=== PATIENT | female | born 1985 | race Caucasian/White ===

== ENCOUNTER 2022-09-19 11:55 | Emergency (ER) | payer SELFPAY ==
[2022-09-19 12:02] VITALS: BP 121/76; PULSE 66; RESP 18; TEMP 98.7; BMI 31.8
[2022-09-19] MEDS ORDERED: IBUPROFEN 600 MG TABLET (FP) PO ONE ×2 (12:56→13:00)
[2022-09-19 13:06] LABS: EPI CELLS >36 /uL (0-25.1); HCG,QUALITATIVE URINE Negative; HYALINE CASTS 2 /uL (0-3.1); URINE APPEARANCE CLOUDY; URINE BACTERIA 580 /uL (0-1359); URINE BILIRUBIN NEGATIVE (NEGATIVE); URINE COLOR ORANGE; URINE GLUCOSE (UA) NEGATIVE (NEGATIVE); URINE KETONE NEGATIVE (NEGATIVE); URINE LEUK ESTERASE 3+ (NEGATIVE); URINE NITRITE NEGATIVE (NEGATIVE); URINE PROTEIN 1+ (NEGATIVE); URINE RBC 2029 /uL (0-23.9); URINE UROBILINOGEN 0.2 mg/dL (0.2-1.0); URINE WBC 721 /uL (0-25.8)
[2022-09-19] MEDS ORDERED: CEPHALEXIN MONOHYDRATE 500 MG CAPSULE (UD) PO ONE (13:16)
[2022-09-19] MEDS ORDERED: CEPHALEXIN MONOHYDRATE 500 MG CAPSULE (UD) ONE (13:17)
== END 2022-09-19 13:20 | disposition home or self-care (01) ==
LOC: JERFT 11:55
DX: R30.0 Dysuria (principal); N30.01 Acute cystitis with hematuria; M54.50 Low back pain, unspecified
CPT/HCPCS: 81003; 84703; 87086; 99283-25

== ENCOUNTER 2022-09-25 18:57 | Emergency (ER) | payer OTHER ==
[2022-09-25 19:27] VITALS: BP 117/77; PULSE 78; RESP 20; TEMP 98.2; BMI 34.7
[2022-09-25] MEDS ORDERED: ACETAMINOPHEN 500 MG TABLET (FP) PO ONE (20:57)
[2022-09-25] MEDS ORDERED: LIDOCAINE 5% TOPICAL PATCH TP ONE (20:58)
[2022-09-25] MEDS ORDERED: LIDOCAINE 5% TOPICAL PATCH ONE (21:32)
[2022-09-25] MEDS ORDERED: ACETAMINOPHEN 325 MG TABLET (FP) ONE (21:32)
[2022-09-25] MEDS ORDERED: LIDOCAINE PATCH REMOVAL MC SCH (22:00)
[2022-09-25 22:22] LABS: EPI CELLS >36 /uL (0-25.1); HYALINE CASTS 8 /uL (0-3.1); PH,URINE 6.5 (5.0-8.0); URINE APPEARANCE CLOUDY; URINE BACTERIA 39 /uL (0-1359); URINE BILIRUBIN NEGATIVE (NEGATIVE); URINE COLOR YELLOW; URINE GLUCOSE (UA) NEGATIVE (NEGATIVE); URINE KETONE NEGATIVE (NEGATIVE); URINE LEUK ESTERASE 2+ (NEGATIVE); URINE NITRITE NEGATIVE (NEGATIVE); URINE PROTEIN NEGATIVE (NEGATIVE); URINE RBC 38 /uL (0-23.9); URINE WBC 260 /uL (0-25.8)
[2022-09-25 22:38] LABS: HCG,QUALITATIVE URINE Negative
[2022-09-26] MEDS ORDERED: METHOCARBAMOL 500 MG TABLET PO ONE (00:27)
[2022-09-26] MEDS ORDERED: KETOROLAC TROMETHAMINE 60 MG/2 ML VIAL IM ONE (00:29)
[2022-09-26] MEDS ORDERED: METHOCARBAMOL 500 MG TABLET ONE (00:30)
[2022-09-26] MEDS ORDERED: KETOROLAC TROMETHAMINE 30 MG/1 ML VIAL IM ONE (00:41)
[2022-09-26] MEDS ORDERED: KETOROLAC TROMETHAMINE 30 MG/1 ML VIAL ONE (00:42)
== END 2022-09-26 00:52 | disposition home or self-care (01) ==
LOC: JER 18:57
DX: M54.42 Lumbago with sciatica, left side (principal)
CPT/HCPCS: 72131-TC; 81003; 84703; 99284-25

== ENCOUNTER 2023-05-26 11:04 | Emergency (ER) | payer SELFPAY ==
[2023-05-26 11:22] VITALS: BP 116/76; PULSE 82; RESP 18; TEMP 99.1; BMI 32.9
== END 2023-05-26 14:23 | disposition home or self-care (01) ==
LOC: JER 11:04
DX: R05.9 Cough, unspecified (principal); R09.89 Other specified symptoms and signs involving the circulatory and respiratory systems; R50.9 Fever, unspecified; J10.1 Influenza due to other identified influenza virus with other respiratory manifestations; J40 Bronchitis, not specified as acute or chronic; Z20.822 Contact with and (suspected) exposure to COVID-19
CPT/HCPCS: 0241U-QW; 71046-TC-FY; 93005; 93010; 99284-25

== ENCOUNTER 2023-09-27 17:26 | Emergency (ER) | payer OTHER ==
[2023-09-27 17:38] VITALS: BP 119/69; PULSE 56; RESP 20; TEMP 98.1; BMI 32.5
[2023-09-27] MEDS ORDERED: ACETAMINOPHEN 500 MG TABLET (FP) ONE (18:31)
[2023-09-27] MEDS: ACETAMINOPHEN 500 MG TABLET (FP) PO ONE (18:33)
== END 2023-09-27 18:40 | disposition home or self-care (01) ==
LOC: JERFT 17:26
DX: S00.93XA Contusion of unspecified part of head, initial encounter (principal); W20.8XXA Other cause of strike by thrown, projected or falling object, initial encounter; Y99.0 Civilian activity done for income or pay
CPT/HCPCS: 99283-25